=== PATIENT | male | born 1985 | race Caucasian/White ===

== ENCOUNTER 2018-01-08 20:39 | Emergency (ER) | payer OTHER ==
[~2018-01-08] VITALS: Ht 185.4 cm; Wt 79.4 kg
[2018-01-08] MEDS ORDERED: CLARITIN10 MG (20:45)
[2018-01-08 21:04] LABS: ABSOLUTE BASOPHILS 0.1 thou/uL (0.0-0.2); ABSOLUTE EOSINOPHILS 0.2 thou/uL (0.0-0.7); ABSOLUTE MONOCYTES 0.5 thou/uL (0.0-1.2); ABSOLUTE NEUTROPHILS 3.5 thou/uL (1.6-8.1); BASOPHILS 0.8 %; EOSINOPHILS 3.7 %; HEMATOCRIT 43.7 % (42.0-52.0); HEMOGLOBIN 14.9 gm/dL (14.0-18.0); LYMPHOCYTES 32.1 %; MCH 29.3 pg (26.0-34.0); MONOCYTES 7.7 %; NUCLEATED RBCS 0 /100WBC; PLATELET COUNT* 221 thou/uL (150-400); POLYS 55.7 %; RBC 5.08 mil/uL (4.50-6.00); RDW-CV 12.9 % (10.5-14.5); WBC 6.2 thou/uL (4.0-11.0)
[2018-01-08 21:12] LABS: ANION GAP 9 mmol/L (7-16); BUN 18 mg/dL (7-18); CALCIUM 9.4 mg/dL (8.5-10.1); CHLORIDE 103 mmol/L (98-107); CO2 30 mmol/L (21-32); CREATININE 1.1 mg/dL (0.6-1.3); GLUCOSE 129 mg/dL (70-99); POTASSIUM 3.4 mmol/L (3.5-5.1); SODIUM 142 mmol/L (136-145)
[2018-01-08 21:20] LABS: APTT 24.2 Seconds (25.0-31.3)
[2018-01-08 21:31] LABS: ALBUMIN 4.2 g/dL (3.4-5.0); ALKALINE PHOSPHATASE 79 U/L (46-116); CK-MB MASS < 0.5 ng/mL (<0.5-3.6); LIPASE 142 U/L (73-393); MAGNESIUM 2.2 mg/dL (1.8-2.4); NT-PRO BRAIN NAT PEPTIDE 10 pg/mL (<300); SGOT 19 U/L (15-37); SGPT 49 U/L (30-65); TOTAL BILIRUBIN 0.2 mg/dL (<0.1-1.0); TOTAL PROTEIN 7.7 g/dL (6.4-8.2); TROPONIN-I LEVEL <0.06 ng/mL (<0.06)
[2018-01-08 21:57] VITALS: BP 131/81
--- NOTE | 2018-01-09 16:16 | EKG ---
[place] [address] ELECTROCARDIOGRAM REPORT Name: ABEL RANDHAWA Sudhakar Room: [facility]#: [id number] Admission: 01/08/18 Attend Phys: Discharge: 01/08/18 Date of : 81 Report #: [id number] THIS REPORT FOR: //name// [facility] ED Test Date: 2018-01-08 Test Time: 20:43:20 Pat Name: ABEL RANDHAWA Department: Room: Gender: M [employer]: : 1985 Requested By: Giuliano Madden Order Number: [id number] MD: Luc Forte Measurements Intervals [place] Rate: 105 P: 71 VA: 114 QRS: 57 QRSD: 87 T: 57 QT: 302 QTc: 400 Interpretive Statements Sinus tachycardia Nonspecific repol abnormality, diffuse leads No previous ECG available for comparison Electronically Signed On 01-09-2018 16:15:53 CDT by Luc Forte [email or web address] <ELECTRONICALLY SIGNED> By: Luc Forte MD, [facility] 01/09/18 1615 2043 2043 Luc Forte MD, FACC /EPI
== END 2018-01-08 21:57 | disposition home or self-care (01) ==
LOC: M.ERS 20:39
PROVIDERS: Family Medicine
DX: R07.9 Chest pain, unspecified (principal)